=== PATIENT | female | born 2000 | race Caucasian/White ===

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

== ENCOUNTER 2024-06-24 09:19 | Emergency (ER) | payer MEDICAID, SELFPAY ==
[2024-06-24 09:21] VITALS: BP 146/85; PULSE 72; RESP 14; TEMP 37.2; O2SAT 97; BMI 20.9
[2024-06-24 09:51] LABS: Bacteria 0 SEEN /hpf (None Seen); Mucous, Urine 0 SEEN /hpf (<or=2+); Red Blood Cells-Urine 0 SEEN /hpf (0-5)
[2024-06-24 09:51] LABS: Absolute Lymphocyte Count 2.38 X10^3/uL (0.83-4.51); Absolute Neutrophil Count 8.8 X10^3/uL (2.0-7.7); Basophil# 0.04 X10^3/uL; Basophil% 0.3 % (0-1); Eosinophil# 0.07 X10^3/uL; Eosinophils% 0.6 % (0-5); Hematocrit 37.9 % (37-47); Hemoglobin 12.8 g/dL (12.0-15.0); Lymphocyte # 2.38 X10^3/ul (0.83-4.51); Lymphocyte % 19.3 % (19-41); Mean Corp Hgb Conc 33.8 g/dL (32-36); Mean Corpuscular Hgb 31.7 pg (27.0-32.0); Mean Corpuscular Volume 93.8 fL (81-99); Mean Platelet Vol. 8.9 fl (6.2-12.0); Monocyte# 0.98 X10^3/uL; NRBC Flagged by Analyzer 0 % (0-5); Neutrophil # 8.78 X10^3/uL (2.7-7.7); Neutrophil % 71.2 % (47-70); Platelet Count 223 K/mm3 (150-450); RBC Distribution Width CV 12.3 % (11.6-14.6); Red Blood Count 4.04 M/mm3 (4.2-5.4); White Blood Count 12.3 K/mm3 (4.4-11.0)
[2024-06-24 09:58] LABS: Color, Urine Yellow (Yellow); Glucose, Dipstick Normal (Normal); Ketone-Dipstick Negative (Negative); Leukocyte Esterase-Dipstick 500 /ul (Negative); Nitrite-Dipstick Positive (Negative); Occult Blood-Urine 250 /ul (Negative); Protein-Dipstick 100 mg/dl (Negative); Specific Gravity, Urine 1.015 (1.002-1.030); Urine Bilirubin Dipstick Negative (Negative); Urine Clarity Turbid (Clear); Urine Urobilinogen Normal (Normal)
[2024-06-24 10:11] LABS: Squamous Epithelial Cells - UA 0-5 SEEN /hpf (5-10); White Blood Cells >100 SEEN /hpf (0-5)
[2024-06-24 10:12] LABS: Anion Gap 8 (5-15); BUN 13 mg/dL (7-18); BUN/Creat Ratio 12.6 RATIO (10-20); Calcium,Total 9.4 mg/dL (8.5-10.1); Chloride 103 mmol/L (98-107); Creatinine, Serum 1.03 mg/dL (0.55-1.02); EST Glomerular Filtration Rate 71 mL/min (>60); Est Glom Filt Rate - Afr Amer 86 mL/min (>60); Estimated Creatinine Clearance 70.87 ml/min; Glucose 102 mg/dL (74-106); Potassium 3.6 mmol/L (3.5-5.1); Sodium Level 138 mmol/L (136-145)
--- NOTE | 2024-06-24 11:20 | EDS_ITS ---
HPI History of Present Illness Chief Complaint: Complaint Detail of Chief Complaint: Urinary symptoms with right flank pain that started this morning Informant: patient Onset/Context/Timing Onset: Today Context: Sudden Onset Timing: Continuous (Right flank pain. 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 She presents with urinary tract symptoms that started this morning. She does endorse frequency, dysuria, urgency without hematuria. She also complains of right flank pain. This is her fourth or fifth episode of pyelonephritis. She is concerned she has pyelonephritis. She reports subjective fever. No chills. She denies headache, visual, ocular auditory symptoms. She denies cardiac or respiratory symptoms. She denies abdominal pain, nausea or vomiting. She denies any rash or lesions. Prior similar symptoms: Yes Recent Illness/Hospitalization: No (Urinary tract infection per our records is 2020) [facility] Home Medications ?Medication ?Instructions ?Recorded ?Last Taken ?Type dextroamphetamine-amphetamine 10 2.5 mg PO BID 12/31/17 Unknown History mg tablet (Adderall) cephalexin 500 mg capsule 500 mg PO Q6 #40 CAPSULES 06/24/24 Unknown Rx hydrocodone-acetaminophen 5-325mg 1 tab PO Q6H PRN PRN Pain 1 day #4 06/24/24 Unknown Rx 5mg-325mg TABLETS Allergy/AdvReac Type Severity Reaction Status Date / Time No Known Allergies Allergy Verified 06/24/24 09:20 Social History Smoking Status: Current every day smoker tobacco type: e-cigarettes ROS ROS ED Constitutional Constitutional ED: Reports fever(s) and subjective; Denies chills, sweats or weight loss Eyes Eyes: Denies blurry vision or change in vision ENT ENT ED: Denies ear pain, rhinorrhea or sore throat Cardiovascular Cardiovascular: Denies chest pain or palpitations Respiratory/Chest Respiratory/Chest: Denies cough, dyspnea or dyspnea on exertion Gastrointestinal Gastrointestinal: Denies abdominal pain, nausea or vomiting Genitourinary Genitourinary ED: Reports dysuria and urinary frequency; Denies hematuria Musculoskeletal Musculoskeletal: Reports back pain; Denies arthralgias, myalgias or neck pain Integumentary Denies rash Neurologic Neurologic: Denies headache(s) or paresthesias Psychiatric Psychiatric: Denies anxiety or depression Endocrine Endocrinology: Denies cold intolerance or heat intolerance Hematologic/Lymphatic Hematologic/Lymphatic: Reports systems reviewed and no addt'l complaints, except as documented EXAM Physical Exam Const Vital Signs: 06/24/24 09:21 Temperature 99 F Temperature Source Temporal Pulse Rate 72 Respiratory Rate 14 Blood Pressure 146/85 H Blood Pressure Mean 105 Pulse Ox 97 Oxygen Delivery Method Room Air Positive well nourished and well developed General Appearance ED: well developed and NAD; Negative for pallor HEENT Denies moist mucous membranes Negative for trauma or tenderness Eyes PERRL and EOMs intact bilaterally General Eye ED: Negative for pale conjunctiva or scleral icterus Neck No no lymphadenopathy, No supple and No no JVD Chest Wall inspection of chest normal and palpation of chest normal Resp normal respiratory effort Cardio regular rate, regular rhythm, S1 normal heart sound, S2 normal heart sound and no murmurs GI normal to inspection, nondistended, normoactive bowel sounds, non-tender, non- distended and no masses; Negative for hepatosplenomegaly Back/Spine General Back: CVA tenderness right Extremity normal to inspection Neuro oriented x3 and CN's II-XII intact bilaterally Sensorium / Orientation: alert Psych mental status grossly normal Skin no rashes or lesions noted, no wounds and skin turgor normal General Skin Exam: Negative for jaundice or pallor MDM MDM MDM Narrative Medical decision making narrative: Differential diagnosis would include complicated UTI, pyelonephritis, pain of unknown etiology, atypical presentation for abdominal pathology which would include IBS, IBD. Will obtain CBC to assess white count differential. BMP to assess renal function Case antibiotics doses need to be changed and a UA. UA reveals greater than 100 WBCs. She has positive nitrites. There is no bacteria seen because she is going to the bathroom frequently. Clinically she has pyelonephritis. Lab Data Attestation: I reviewed the patient's lab results. Labs: Laboratory Results - last 24 hr 06/24/24 06/24/24 09:40 09:45 WBC 12.3 H RBC 4.04 L Hgb 12.8 Hct 37.9 MCV 93.8 MCH 31.7 MCHC 33.8 RDW Std Deviation 43.0 RDW Coeff of Vish 12.3 Plt Count 223 MPV 8.9 Immature Gran % (Auto) 0.600 Neut % (Auto) 71.2 H Lymph % (Auto) 19.3 [place] % (Auto) 8.0 Eos % (Auto) 0.6 Baso % (Auto) 0.3 Absolute Neuts (auto) 8.8 H Absolute Lymphs (auto) 2.38 Nucleated RBC % 0 Sodium 138 Potassium 3.6 Chloride 103 Carbon Dioxide 27.0 Anion Gap 8 BUN 13 Creatinine 1.03 H Estim Creat Clear Calc 70.87 Est GFR (MDRD) Af Amer 86 Est GFR (MDRD) Non-Af 71 BUN/Creatinine Ratio 12.6 Glucose 102 Calcium 9.4 Urine Color Yellow Urine Clarity Turbid Urine pH 6.0 Ur Specific [place] 1.015 Urine Protein 100 H Urine Glucose (UA) Normal Urine Ketones Negative Urine Occult Blood 250 H Urine Nitrite Positive H Urine Bilirubin Negative Urine Urobilinogen Normal Ur Leukocyte Esterase 500 H Urine RBC 0 SEEN Urine WBC >100 SEEN Ur Squamous Epith Cells 0-5 SEEN Urine Bacteria 0 SEEN Urine Mucus 0 SEEN Treatment and Re-Evaluation :: Patient received dose of Rocephin. She was discharged with cephalexin 500 mg 4 times daily for 10 days. Urine culture was sent. She was given a work excuse for today and pain medicine for today. Discharge Plan Triage Chief Complaint: Complaint ED Provider: Gregorio Mccallum Dx/Rx/DC Orders Clinical Impression: Acute pyelonephritis, Elevated blood-pressure reading, without diagnosis of hypertension Prescriptions: New hydrocodone-acetaminophen 5-325 mg tablet 1 tab PO Q6H PRN PRN (Reason: Pain) 1 Days Qty: 4 0RF cephalexin 500 mg capsule 500 mg PO Q6 Qty: 40 0RF No Action dextroamphetamine-amphetamine [Adderall] 10 mg tablet 2.5 mg PO BID Stand Alone Forms: ED Work / School Excuse Primary Care Provider: oTmás Henry Referrals: Tomás eHnry MD [Primary Care Provider] - 3-5 Days if not improving Print Language: Citizen Of [place] Disposition Disposition: Home, Self Care
[2024-06-24 11:37] VITALS: BP 118/74; PULSE 71; RESP 18; TEMP 36.8; O2SAT 100
== END 2024-06-24 11:38 | disposition home or self-care (01) ==
PROVIDERS: Emergency Provider Emergency Medicine; PCP Pediatrics; Visit Provider Emergency Medicine
DX: N10 Acute pyelonephritis (principal); R03.0 Elevated blood-pressure reading, without diagnosis of hypertension; R10.9 Unspecified abdominal pain; F17.290 Nicotine dependence, other tobacco product, uncomplicated
CPT/HCPCS: 80048; 81001; 85025; 87086; 87088; 87186; 99284; A4216